=== PATIENT | female | born 1965 | race Caucasian/White ===

== ENCOUNTER 2020-02-05 09:34 | Outpatient (CLI) | payer OTHER, SELFPAY ==
--- NOTE | ~2020-02-05 | MR_ITS ---
EXAMINATION: MR knee RT wo con DATE: 02/05/2020 10:25 INDICATION: Right knee pain. TECHNIQUE: Magnetic resonance imaging (MRI) of the right knee was performed without intravenous contr ast. Sequences included axial PD-weighted FS FSE, coronal PD-weighted FSE and PD-weighted FS FSE, sag ittal PD-weighted FSE, and sagittal T2-weighted FS FSE. COMPARISON: None. FINDINGS: Medial compartment: There is a complex tear of posterior root of medial meniscus. There is cartilage surface irregularity of tibial condyle. There is shallow partial-thickness cartilage loss of femoral condyle involving th e central articular surface. Lateral compartment: There is a complex tear of posterior horn of lateral meniscus. There is shallow partial-thickness car tilage loss of femoral condyle medially. There is deep partial thickness cartilage loss of tibial con dyle involving the central and posterior articular surface. Patellofemoral compartment: There is deep partial thickness cartilage loss involving the patellar medial facet and median ridge w ith mild subchondral edema-like marrow signal intensity. There is deep partial thickness cartilage lo ss of central and medial trochlea. Ligaments and tendons: The anterior and posterior cruciate ligaments are normal. There are changes of prior sprains of media l collateral ligament and fibular collateral ligament characterized by thickening and increased signa l intensity proximally. There is mild patellar tendinopathy. Fluid: There is a small knee joint effusion. There is a small Petty's cyst. There is mild superficial infrap atellar bursitis. IMPRESSION: 1. Moderate chondrosis of lateral and patellofemoral compartments and mild chondrosis of medial aury rtment. 2. Tears of medial and lateral menisci. 3. Small knee joint effusion. 4. Small Petty's cyst. Reviewed, dictated and finalized at location A. IMPRESSION: 1. Moderate chondrosis of lateral and patellofemoral compartments and mild annelise drosis of medial compartment. 2. Tears of medial and lateral menisci. 3. Small knee joint effusion. 4. Small Petty's cyst.
== END 2020-02-05 09:35 | disposition home or self-care (01) ==
PROVIDERS: PCP Family Medicine; Visit Provider Physician Assistant
DX: M25.561 Pain in right knee (principal); M22.2X1 Patellofemoral disorders, right knee; S83.281A Other tear of lateral meniscus, current injury, right knee, initial encounter; S83.241A Other tear of medial meniscus, current injury, right knee, initial encounter; M25.461 Effusion, right knee; M71.21 Synovial cyst of popliteal space [Baker], right knee
CPT/HCPCS: 73721

== ENCOUNTER 2020-02-27 10:15 | Outpatient (CLI) | payer OTHER, SELFPAY ==
--- NOTE | 2020-02-27 | ECG_ITS ---
Measurements Intervals [place] Rate: 70 P: 61 MO: 138 QRS: 78 QRSD: 92 T: 40 QT: 396 QTc: 430 Interpretive Statements SINUS RHYTHM BORDERLINE ST ABNORMALITY- INFERIOR LEADS BASELINE ARTIFACT- I, III, AVL BORDERLINE ECG Electronically Signed On 02-27-2020 11:18:50 CDT by Nato Brooks D.O.
== END 2020-02-27 10:16 | disposition home or self-care (01) ==
LOC: ANHLAB 10:17 → ANHCARD 10:19
PROVIDERS: PCP Family Medicine; Visit Provider Orthopaedic Surgery
DX: Z01.818 Encounter for other preprocedural examination (principal); R94.31 Abnormal electrocardiogram [ECG] [EKG]
CPT/HCPCS: 93005

== ENCOUNTER → 2020-08-29 11:36 | Outpatient (CLI) | payer OTHER, SELFPAY ==
--- NOTE | ~2020-08-29 | MM_ITS ---
EXAMINATION: MM screening [facility] BI w [place] HISTORY: Screening mammogram TECHNIQUE: Craniocaudal and mediolateral oblique 3-D tomosynthesis images were obtained and synthetic 2-D images were generated. CAD analysis was submitted and interpreted. COMPARISON: 06/01/2019, 05/01/2017, 04/08/2017 BREAST PARENCHYMAL COMPOSITION: The breasts are heterogeneously dense, which may obscure small masses . FINDINGS: There is no evidence of suspicious mass, calcification, or architectural distortion to sugg est malignancy in either breast. There has been no suspicious interval change. IMPRESSION: 1. No mammographic evidence of malignancy. 2. Recommend routine screening mammography in one year. BI-RADS Category 1: Negative Reviewed, dictated and finalized at location A. EILLANCE SENSOR OFFICER
== END ==
PROVIDERS: Visit Provider Obstetrics & Gynecology
DX: Z12.31 Encounter for screening mammogram for malignant neoplasm of breast (principal)
CPT/HCPCS: 77063; 77067

== ENCOUNTER → 2020-09-12 12:56 | Outpatient (CLI) | payer OTHER, SELFPAY ==
--- NOTE | ~2020-09-12 | US_ITS ---
EXAMINATION: US soft tissue groin RT DATE: 09/12/2020 13:24 INDICATION: Right groin pain. TECHNIQUE: Multiple grayscale and Doppler ultrasound images of the right inguinal region were obtaine d. COMPARISON: None FINDINGS: There is no abnormal mass or lymphadenopathy in the right inguinal region. IMPRESSION: 1. No abnormal mass or lymphadenopathy in the right inguinal region. Reviewed, dictated and finalized at location B. HANDISE FLOW TEAM MEMBER
== END ==
PROVIDERS: Visit Provider Nurse Practitioner
DX: R10.30 Lower abdominal pain, unspecified (principal)
CPT/HCPCS: 76882

== ENCOUNTER → 2020-09-19 10:13 | Outpatient (CLI) | payer OTHER, SELFPAY ==
--- NOTE | ~2020-09-19 | DEXA_ITS ---
Bone Density Report Name: Sabine Moscoso Age: 54 Sex: Female Ethnicity: White Date of : 1965 Indication: osteopenia; hysterectomy; postmenopausal Referring Provider: FLORINA YAP Study: Bone densitometry was performed. Exam Date: September 19, 2020 Accession number: [id number] Bone Density: Region BMD T-score Z-score Classification AP Spine (L1-L4) 0.796 -2.3 -1.2 Osteopenia Femoral Neck (Left) 0.684 -1.5 -0.4 Osteopenia Total Hip (Left) 0.784 -1.3 -0.6 Osteopenia Femoral Neck (Right) 0.645 -1.8 -0.8 Osteopenia Total Hip (Right) 0.782 -1.3 -0.7 Osteopenia Total Hip Mean 0.783 -1.3 -0.7 Osteopenia World Health Organization criteria for BMD impression classify patients as: Normal (T-score at or above -1.0), Osteopenia (T-score between -1.0 and -2.5), or Osteoporosis (T-score at or below -2.5). 10-year Fracture Risk(1): Major Osteoporotic Fracture 7.2% Hip Fracture 0.8% Reported Risk Factors: [place] (), Neck BMD=0.645, BMI=24.1 (1) FRAX(R) Version 3.08. Fracture probability calculated for an untreated patient. Fracture probability may be lower if the patient has received treatment. Previous Exams: Region Exam Age BMD T-score BMD Change BMD Change Date g/cm2 vs Baseline vs Previous AP Spine(L1-L4) 09/19/2020 54 0.796 -2.3 -0.081* -0.053* 04/07/2018 52 0.849 -1.8 -0.028* -0.028* 03/01/2016 50 0.877 -1.5 Total Hip(Left) 09/19/2020 54 0.784 -1.3 -0.076* -0.038* 04/07/2018 52 0.822 -1.0 -0.038* -0.038* 03/01/2016 50 0.860 -0.7 Total Hip(Right) 09/19/2020 54 0.782 -1.3 -0.071* -0.050* 04/07/2018 52 0.832 -0.9 -0.021 -0.021 03/01/2016 50 0.853 -0.7 *Denotes significance at 95% confidence level, LSC for AP Spine = 0.022 g/cm2, LSC for Total Hip = 0.027 g/cm2 Clinical Information Provided by Patient: Has used the following medications: Calcium, B-12 mixture Has the following medical conditions: Hysterectomy Patient maximum height was 65 Menopause Age: 46 Does not regularly consume dairy products Drinks caffeinated beverages Onset of menses at age 16 Number of children 2 Missed period for more than 6 months in a row Impression: The patient has low bone mass, based on the Total Spine T-score. The patient has an estimated ten-year risk of hip fracture of 0.8% and an estimated ten-year risk of damaris
== END ==
PROVIDERS: Visit Provider Obstetrics & Gynecology
DX: Z13.820 Encounter for screening for osteoporosis (principal); M85.88 Other specified disorders of bone density and structure, other site; M85.852 Other specified disorders of bone density and structure, left thigh; M85.851 Other specified disorders of bone density and structure, right thigh
CPT/HCPCS: 77080

== ENCOUNTER → 2021-01-07 13:28 | Outpatient (CLI) | payer OTHER, SELFPAY ==
--- NOTE | ~2021-01-07 | XR_ITS ---
XR skull min 4V DATE: 01/07/2021 14:11 INDICATION: Head injury TECHNIQUE: 4 views COMPARISON: None FINDINGS: No skull fracture or bone destruction. Sella turcica appears normal. Mastoid air cells and paranasal sinuses are normally developed and aerated. IMPRESSION: Negative Reviewed, dictated and finalized at location A. IMPRESSION: Negative
== END ==
PROVIDERS: Visit Provider Nurse Practitioner Family
DX: S09.90XA Unspecified injury of head, initial encounter (principal)
CPT/HCPCS: 70260

== ENCOUNTER → 2021-09-13 15:36 | Outpatient (CLI) | payer OTHER, SELFPAY ==
--- NOTE | ~2021-09-13 | MM_ITS ---
EXAMINATION: MM screening [facility] BI w [place] HISTORY: Screening mammogram TECHNIQUE: Craniocaudal and mediolateral oblique 3-D tomosynthesis images were obtained and synthetic 2-D images were generated. CAD analysis was submitted and interpreted. COMPARISON: 08/29/2020, 06/11/2019, 05/01/2018 BREAST PARENCHYMAL COMPOSITION: The breasts are heterogeneously dense, which may obscure small masses . FINDINGS: There is no evidence of suspicious mass, calcification, or architectural distortion to sugg est malignancy in either breast. There has been no suspicious interval change. IMPRESSION: 1. No mammographic evidence of malignancy. 2. Recommend routine screening mammography in one year. BI-RADS Category 1: Negative Reviewed, dictated and finalized at location A. CTOR DECISION SUPPORT
== END ==
PROVIDERS: PCP Nurse Practitioner; Visit Provider Nurse Practitioner
DX: Z12.31 Encounter for screening mammogram for malignant neoplasm of breast (principal)
CPT/HCPCS: 77063; 77067

== ENCOUNTER → 2021-10-11 08:09 | Outpatient (CLI) | payer OTHER, SELFPAY ==
--- NOTE | ~2021-10-11 | XR_ITS ---
EXAMINATION: XR finger 5th RT min 2V INDICATION: Left fifth finger pain TECHNIQUE: Four views of the left fifth finger are obtained. COMPARISON: None available FINDINGS: There is heterotopic ossification dorsal to the fifth middle phalanx on the lateral view. T here is moderate joint space narrowing at the fifth distal interphalangeal joint. There is soft tissu e swelling of the third finger. The remaining osseous structures are unremarkable. IMPRESSION: 1. Possible old dorsal plate avulsion with nonunion at the fifth distal interphalangeal joint. Reviewed, dictated and finalized at location A. DEVELOPER IMPRESSION: 1. Possible old dorsal plate avulsion with nonunion at the fifth distal interph alangeal joint.
--- NOTE | ~2021-10-11 | XR_ITS ---
EXAMINATION: XR hand RT 2V INDICATION: Right hand pain TECHNIQUE: Two views of the right hand are obtained. COMPARISON: None available FINDINGS: Heterotopic ossification is seen dorsal to the fifth middle phalanx on the lateral view. Th ere is moderate joint space narrowing of the fifth distal interphalangeal joint. No acute fracture is identified. IMPRESSION: 1. Possible avulsion plate avulsion with nonunion at the fifth distal interphalangeal joint. Reviewed, dictated and finalized at location A. ITURE SERVICER IMPRESSION: 1. Possible avulsion plate avulsion with nonunion at the fifth distal interphal angeal joint.
== END ==
PROVIDERS: PCP Family Medicine; Visit Provider Nurse Practitioner Family
DX: M79.641 Pain in right hand (principal)
CPT/HCPCS: 73120; 73140

== ENCOUNTER → 2022-01-22 13:22 | Outpatient (CLI) | payer OTHER, SELFPAY ==
--- NOTE | ~2022-01-22 | XR_ITS ---
EXAMINATION: XR_CERV2-3V_CR DATE: 01/22/2022 13:51 INDICATION: Neck pain. TECHNIQUE: 4 views of cervical spine including standing views were obtained. COMPARISON: None. FINDINGS: There is 2 mm anterolisthesis of C4 on C5 and 2 mm retrolisthesis of C5 on C6. Vertebral epifanio dy heights are normal. There is mildly decreased disc height at C4-C5. There is multilevel mild facet joint osteoarthritis. There is moderate facet joint osteoarthritis on the left at C4-C5. There is mi ld central canal stenosis at C4-C5 and C5-C6. No prevertebral soft tissue swelling. IMPRESSION: 1. Mild cervical spondylosis. Reviewed, dictated and finalized at location A.
== END ==
PROVIDERS: PCP Family Medicine; Visit Provider Nurse Practitioner Family
DX: M47.892 Other spondylosis, cervical region (principal)
CPT/HCPCS: 72040

== ENCOUNTER → 2022-10-20 13:56 | Outpatient (CLI) | payer OTHER, SELFPAY ==
--- NOTE | ~2022-10-20 | MM_ITS ---
EXAMINATION: MM screening deb BI w [place] HISTORY: Screening mammogram TECHNIQUE: Craniocaudal and mediolateral oblique 3-D tomosynthesis images were obtained and synthetic 2-D images were generated. CAD analysis was submitted and interpreted. COMPARISON: 09/13/2021, 08/29/2020, 06/01/2019 bilateral screening mammogram examinations BREAST PARENCHYMAL COMPOSITION: The breasts are heterogeneously dense, which may obscure small masses . FINDINGS: Some subtle microcalcifications are noted in the outer left breast on craniocaudal projecti on. Diagnostic left mammogram with magnification views is recommended, with ultrasound if required. Otherwise there is no evidence of suspicious mass, calcification, or architectural distortion to sugg est malignancy in either breast. There has been no other suspicious interval change. IMPRESSION: 1. Subtle microcalcifications, left breast 2. Diagnostic left mammogram with magnification views is recommended, with ultrasound if required BI-RADS Category 0: Incomplete: Needs additional imaging evaluation. Reviewed, dictated and finalized at location A. ATIONS SECTION MANAGER IMPRESSION: 1. Subtle microcalcifications, left breast 2. Diagnostic left mammogram with magnification views is recommended, with ultr asound if required BI-RADS Category 0: Incomplete: Needs additional imaging evaluation.
== END ==
PROVIDERS: PCP Nurse Practitioner; Visit Provider Nurse Practitioner
DX: Z12.31 Encounter for screening mammogram for malignant neoplasm of breast (principal); R92.8 Other abnormal and inconclusive findings on diagnostic imaging of breast
CPT/HCPCS: 77063; 77067

== ENCOUNTER → 2022-11-13 08:24 | Outpatient (CLI) | payer OTHER, SELFPAY ==
--- NOTE | ~2022-11-13 | MMUS_ITS ---
EXAMINATION: MM diagnostic mammo unilat LT, US breast LT complete HISTORY: Follow-up left breast calcifications TECHNIQUE: Additional 3-D tomosynthesis images of the left breast were performed and synthetic 2-D im ages were generated. CAD analysis was submitted and interpreted. High resolution complete left breast ultrasound was performed. COMPARISON: Comparison to multiple prior studies sequentially, with oldest reviewed study dated 04/08. BREAST PARENCHYMAL COMPOSITION: The breasts are heterogeneously dense, which may obscure small masses . FINDINGS: MAMMOGRAPHIC FINDINGS: There are no suspicious masses, calcifications or architectural distortion in the left breast to sugg est malignancy. ULTRASOUND: Complete US of all 4 quadrants of the left breast and retroareolar region was reviewed. Normal hetero geneous echotexture without focal solid or cystic mass. IMPRESSION: 1. No evidence for malignancy in the left breast. 2. Routine yearly screening mammogram and regular clinical breast examination are recommended. BI-RADS Category 1: Negative Reviewed, dictated and finalized at location A. IMPRESSION: 1. No evidence for malignancy in the left breast. 2. Routine yearly screening mammogram and regular clinical breast examination a re recommended. BI-RADS Category 1: Negative
== END ==
PROVIDERS: PCP Family Medicine; Visit Provider Obstetrics & Gynecology Gynecology
DX: R92.8 Other abnormal and inconclusive findings on diagnostic imaging of breast (principal)
CPT/HCPCS: 76641; 77065

== ENCOUNTER 2024-02-04 13:38 | Outpatient (CLI) | payer OTHER, SELFPAY ==
--- NOTE | ~2024-02-04 | MM_ITS ---
EXAMINATION: MM screening deb BI w [place] HISTORY: Screening TECHNIQUE: Craniocaudal and mediolateral oblique 3-D tomosynthesis images were obtained and synthetic 2-D images were generated. CAD analysis was submitted and interpreted. COMPARISON: Comparison to multiple prior studies sequentially, with oldest reviewed study dated 03/2018. BREAST PARENCHYMAL COMPOSITION: Dense: The breasts are heterogeneously dense, which may obscure small masses FINDINGS: There is no evidence of suspicious mass, calcification, or architectural distortion to sugg est malignancy in either breast. There has been no suspicious interval change. IMPRESSION: 1. No mammographic evidence of malignancy. 2. Recommend routine screening mammography in one year. BI-RADS Category 1: Negative Reviewed, dictated and finalized at location B.
== END 2024-02-04 13:39 ==
LOC: MICIMG 13:39
PROVIDERS: PCP Nurse Practitioner; Visit Provider Nurse Practitioner
DX: Z12.31 Encounter for screening mammogram for malignant neoplasm of breast (principal)
CPT/HCPCS: 77063; 77067

== ENCOUNTER 2024-08-25 10:32 | Outpatient (CLI) | payer OTHER, SELFPAY ==
--- NOTE | ~2024-08-25 | US_ITS ---
US transvaginal Ordering provider: Padma Reyes, AUTOMATIC BUFFER History: . Pelvic pain . Comparison: None. Technique: endovaginal ultrasound of the pelvis (Doppler ultrasound interrogation techniques used as needed for this exam.) FINDINGS: UTERUS: Surgically removed. CUL DE SAC: No free fluid. RIGHT OVARY: Not visualized. LEFT OVARY: Not visualized. ADNEXA: Normal. No mass. IMPRESSION: Surgical removal of the uterus with nonvisualization of the ovaries. Reviewed, dictated and finalized at location A. TRIMMER IMPRESSION: Surgical removal of the uterus with nonvisualization of the ovaries .
== END 2024-08-25 10:33 | disposition home or self-care (01) ==
LOC: MICIMG 10:32
PROVIDERS: PCP Family Medicine; Visit Provider Nurse Practitioner
DX: R10.2 Pelvic and perineal pain (principal); Z90.710 Acquired absence of both cervix and uterus
CPT/HCPCS: 76830

== ENCOUNTER 2024-11-15 11:07 | Outpatient (CLI) | payer OTHER, SELFPAY ==
--- NOTE | ~2024-11-15 | CT_ITS ---
EXAMINATION: CT abdomen pelvis w con DATE: 11/15/2024 11:38 INDICATION: Other specified soft tissue disorders. Right lower quadrant lump with tenderness. TECHNIQUE: Computed tomography (CT) of the abdomen and pelvis was performed with 100 mL Omnipaque 350 intravenous contrast. Automated exposure control and iterative reconstruction technique were employe d. The dose-length product was 394.88 mGy-cm. COMPARISON: None. FINDINGS: The visualized portions of the lung bases demonstrates minimal atelectasis. No pleural effu hank. The heart size is normal. No pericardial effusion. There are cysts in the liver measuring up to 11 mm. There are changes of cholecystectomy. The spleen, pancreas, adrenal glands, and right kidney are normal. There are cysts in left kidney measuring up to 5 mm. There are no dilated loops of bowel. The appendix is normal. There are no pathologically enlarged lymph nodes. There is no free intraperi toneal fluid. There is mild lumbar spondylosis. IMPRESSION: 1. No etiology for the patient's symptoms. Reviewed, dictated and finalized at location []
== END 2024-11-15 11:08 | disposition home or self-care (01) ==
LOC: MICIMG 11:08
PROVIDERS: PCP Family Medicine
DX: M79.89 Other specified soft tissue disorders (principal)
CPT/HCPCS: 74177; Q9967

== ENCOUNTER 2024-12-02 07:53 | Outpatient (CLI) | payer OTHER, SELFPAY ==
--- NOTE | ~2024-12-02 | US_ITS ---
Abdominal Sonogram: Real-time sonographic imaging of the abdomen was performed. Clinical History: Hepatic and renal cysts Findings: The liver appears normal with no evidence of bile duct dilatation. 1.4 cm hyperechoic hepa tic masses most likely hemangioma. Main portal vein demonstrates normal direction of flow. The spleen is normal in size without evidence of focal lesion. The gallbladder is well distended, and appears normal with no evidence of gallstone or wall thickening. The common bile duct measures 5 mm. The vis ualized pancreas, aorta, and IVC are unremarkable. The right kidney measures 10.8 cm in length and t he left kidney measures 10.0 cm. There is no hydronephrosis or renal calculus. Impression: 1.4 cm probable hepatic hemangioma, which corresponds with lesion seen on recent CT dated 11/15/2024. Reviewed, dictated and finalized at [facility]. Impression: 1.4 cm probable hepatic hemangioma, which corresponds with lesion seen on [facility] CT dated 11/15/2024.
== END 2024-12-02 07:54 | disposition home or self-care (01) ==
LOC: MICIMG 07:53
PROVIDERS: PCP Family Medicine
DX: K76.89 Other specified diseases of liver (principal); N28.1 Cyst of kidney, acquired
CPT/HCPCS: 76700

== ENCOUNTER 2025-02-06 15:48 | Outpatient (CLI) | payer OTHER, SELFPAY ==
--- NOTE | ~2025-02-06 | MM_ITS ---
EXAMINATION: MM screening deb BI w [place] HISTORY: Screening TECHNIQUE: Craniocaudal and mediolateral oblique 3-D tomosynthesis images were obtained and synthetic 2-D images were generated. CAD analysis was submitted and interpreted. COMPARISON: Comparison to multiple prior studies sequentially, with oldest reviewed study dated 04/2019. BREAST PARENCHYMAL COMPOSITION: Dense: The breasts are heterogeneously dense, which may obscure small masses FINDINGS: There are new asymmetries in the upper outer quadrant of the right breast with possible arc hitectural distortion on MLO view. The left breast is stable without evidence for malignancy. IMPRESSION: 1. New right breast asymmetries, upper outer quadrant, posterior third. 2. Additional mammographic views and possible breast ultrasound are recommended. BI-RADS Category 0: Incomplete: Needs additional imaging evaluation. Reviewed, dictated and finalized at location A. IMPRESSION: 1. New right breast asymmetries, upper outer quadrant, posterior third. 2. Additional mammographic views and possible breast ultrasound are recommended . BI-RADS Category 0: Incomplete: Needs additional imaging evaluation.
== END 2025-02-06 15:49 | disposition home or self-care (01) ==
LOC: MICIMG 15:49
PROVIDERS: PCP Family Medicine; Visit Provider Nurse Practitioner
DX: Z12.31 Encounter for screening mammogram for malignant neoplasm of breast (principal); R92.8 Other abnormal and inconclusive findings on diagnostic imaging of breast
CPT/HCPCS: 77063; 77067

== ENCOUNTER 2025-03-03 09:19 | Outpatient (CLI) | payer OTHER, SELFPAY ==
--- NOTE | ~2025-03-03 | MM_ITS ---
EXAMINATION: MM diagnostic deb RT w tico HISTORY: Right breast asymmetry TECHNIQUE: Additional 3-D tomosynthesis images of the right breast were performed and synthetic 2-D i mages were generated. CAD analysis was submitted and interpreted. COMPARISON: 02/06/2025, 02/04/2024 BREAST PARENCHYMAL COMPOSITION:Dense: The breasts are heterogeneously dense, which may obscure small masses. FINDINGS: Right breast asymmetry effaces with spot compression. No persistent mass lesion or suspicio us distortion are identified. No suspicious microcalcification. IMPRESSION: No mammographic evidence for malignancy. BI-RADS Category 1: Negative Reviewed, dictated and finalized at location .
== END 2025-03-03 09:20 | disposition home or self-care (01) ==
LOC: MICIMG 09:20
PROVIDERS: PCP Family Medicine; Visit Provider Obstetrics & Gynecology Gynecology
DX: R92.8 Other abnormal and inconclusive findings on diagnostic imaging of breast (principal)
CPT/HCPCS: 77061; 77065; G0279